=== PATIENT | male | born 1955 | race Caucasian/White ===

== ENCOUNTER 2016-09-13 10:32 | Emergency (ER) | payer MEDICAID ==
[~2016-09-13] VITALS: Ht 166.4 cm; Wt 103.4 kg
[2016-09-13 10:40] VITALS: BP 153/97
--- NOTE | 2016-09-13 11:40 | NUR ---
PT AMBULATED TO ER BED 05.
--- NOTE | 2016-09-13 11:44 | NUR ---
PATIENT PRESENTS TO ED WITH C/O EPIGASTRIC PAIN RADIATES TO UPPER RIGHT ABDOMEN X 2 DAYS.HX: DM, HTN, HYPERLIPIDEMIA;PT STATES HE FEELS NAUSEATED BUT DENIES VOMITTING;HAS DIARRHEA EVERY TIME HE TAKES CHOLESTEROL MEDICINE; SKIN IS PINK/WARM/DRY; AAOX4 WITH EVEN AND STEADY GAIT; LUNGS CLEAR BL; HR EVEN AND REGULAR; PT DENIES ANY FEVER, CP, SOB, OR COUGH AT THIS TIME; PATIENT STATES PAIN OF 10/10 EPIGASTRIC PAIN AT THIS TIME; VSS; PATIENT POSITIONED FOR COMFORT; HOB ELEVATED; BEDRAILS UP X2; BED DOWN. ER MD MADE AWARE OF PT STATUS.
--- NOTE | 2016-09-13 11:44 | NUR ---
ER MD BY BEDSIDE TO EXAMINE PT
[2016-09-13 12:02] LABS: HEMATOCRIT 50.5 % (36-52); HEMOGLOBIN 16.8 g/dL (12.0-18.0); MEAN CORPUSCULAR HEMOGLOBIN 31 pg (27-31); MEAN CORPUSCULAR HGB CONC 33 g/dL (33-37); MEAN CORPUSCULAR VOLUME 93 fL (80-94); PLATELET COUNT (AUTO) 155 K/uL (140-450); RED BLOOD CELL COUNT(AUTO) 5.45 MIL/uL (4.20-6.10); RED CELL DISTRIBUTION WIDTH 12.4 % (11.6-13.7); WHITE BLOOD COUNT (AUTO) 8.3 K/uL (4.8-10.8)
[2016-09-13 12:06] LABS: LYMPHOCYTES % (AUTO) 18.7 % (20.5-51.1); MONOCYTES % (AUTO) 3.7 % (1.7-9.3); NEUTROPHILS % (AUTO) 75.3 % (42.2-75.2)
[2016-09-13 12:06] LABS: APPEARANCE,URINE CLOUDY (CLEAR); BILIRUBIN,URINE 1+ (NEGATIVE); BLOOD, URINE TRACE-L (NEGATIVE); COLOR,URINE YELLOW (YELLOW); LEUKOCYTE ESTERASE ,URINE NEGATIVE (NEGATIVE); NITRITE, URINE NEGATIVE (NEGATIVE); PROTEIN,URINE 1+ (NEGATIVE); UGLUCOSE TRACE (NEGATIVE); UROBILINOGEN,URINE 0.2 EU/dL (0.2 - 1)
[2016-09-13 12:07] LABS: BASOPHILS % (AUTO) 0.4 % (0.0-2.0); EOSINOPHILS # (AUTO) 0.2 K/uL (0-0.4); EOSINOPHILS % (AUTO) 1.9 % (0.0-4.0); LYMPHOCYTES # (AUTO) 1.6 K/uL (2.0-11.5); MONOCYTES # (AUTO) 0.3 K/uL (0.8-1.0); NEUTROPHILS # (AUTO) 6.2 K/uL (1.8-7.7)
[2016-09-13 12:14] LABS: RBC,URINE 0-1 /HPF (0-5); WBC,URINE 0-3 /HPF (0-5)
[2016-09-13 12:15] LABS: BACTERIA,URINE OCCASSIONAL /HPF (None Seen); SQUAMOUS EPITHELIAL CELL,UR 0-2 /LPF (0-3 (FEW)); URINE AMORPHOUS URATE 3+ /HPF (None Seen)
--- NOTE | 2016-09-13 12:23 | NUR ---
ULTRASOUND AT BEDSIDE.
[2016-09-13 12:24] LABS: ALBUMIN 3.8 g/dL (3.4-5.0); ANION GAP 14.4 (8-16); CALCIUM 9.3 mg/dL (8.5-10.1); CARBON DIOXIDE 27.7 mmol/L (21-32); POTASSIUM 3.1 mmol/L (3.5-5.1); TOTAL BILIRUBIN 1.6 mg/dL (0.0-1.0); TOTAL PROTEIN, SERUM 8.1 g/dL (6.4-8.2)
[2016-09-13 12:31] LABS: ICTOTEST POSITIVE (NEGATIVE)
--- NOTE | 2016-09-13 13:24 | NUR ---
Patient appears to be resting comfortably in bed. Vital Signs within normal limits. Respirations even and unlabored.
[2016-09-13 13:48] VITALS: BP 141/94
--- NOTE | 2016-09-13 13:49 | NUR ---
Patient discharged with v/s stable. Written and verbal after care instructions given and explained. Patient alert, oriented and verbalized understanding of instructions. Ambulatory with steady gait. All questions addressed prior to discharge. ID band removed. Patient advised to follow up with PMD. Rx of TRAMADOL HYDROCHLORIDE AND OMEPRAZOLE given. Patient educated on indication of medication including possible reaction and side effects. Opportunity to ask questions provided and answered.
== END 2016-09-13 13:49 | disposition home or self-care (01) ==
LOC: MED 10:39
DX: K29.70 Gastritis, unspecified, without bleeding (principal); E11.9 Type 2 diabetes mellitus without complications; I10 Essential (primary) hypertension; L40.9 Psoriasis, unspecified
CPT/HCPCS: 36415; 76705; 80053; 81001; 82150; 82948; 83690; 85025; 99285

== ENCOUNTER 2017-01-21 10:22 | Emergency (ER) | payer MEDICAID ==
[~2017-01-21] VITALS: Ht 172.7 cm; Wt 104.5 kg
[2017-01-21 10:53] VITALS: BP 142/91
--- NOTE | 2017-01-21 10:58 | NUR ---
Patient to bed 08.
--- NOTE | 2017-01-21 11:00 | NUR ---
61 BIB FAMILY C/O COLD SYMPTOMS x 3 DAYS. PT STS PRODUCTIVE COUGH WITH "GREEN PHELEGM". PT HAS THROAT PAIN 3/10 ACHING NON-RADIATING. FAMILY DENIES GIVING ANY MEDS PRIOR TO ER VISIT. AAO APPROPRIATE TO AGE, BREATHING EVEN AND UNLABORED. ERMD NOTIFIED OF PATIENT STATUS.
--- NOTE | 2017-01-21 12:24 | NUR ---
Dr. Kemp evaluating patient at bedside.
[2017-01-21 13:24] VITALS: BP 185/85
--- NOTE | 2017-01-21 13:24 | NUR ---
Patient discharged with v/s stable. Written and verbal after care instructions given and explained. Patient alert, oriented and verbalized understanding of instructions. Carried with steady gait. All questions addressed prior to discharge. ID band removed. Patient advised to follow up with PMD. Rx of Motrin and Prednisone given. Patient educated on indication of medication including possible reaction and side effects. Opportunity to ask questions provided and answered.
== END 2017-01-21 13:19 | disposition home or self-care (01) ==
LOC: MED 10:22
DX: J06.9 Acute upper respiratory infection, unspecified (principal); E11.9 Type 2 diabetes mellitus without complications; I10 Essential (primary) hypertension
CPT/HCPCS: 99283

== ENCOUNTER 2018-05-02 08:50 | Emergency (ER) | payer MEDICAID ==
[~2018-05-02] VITALS: Ht 172.7 cm; Wt 107.3 kg
[2018-05-02 08:56] VITALS: BP 142/81
--- NOTE | 2018-05-02 09:03 | NUR ---
Note undone in EDM - 05/02/18 at 0929 by [email or web address] 62 Y M BIB C/O LEFT SIDE FACIAL NUMBNESS & LEFT EYE WATERY X YESTERDAY. LEFT EYE REDNESS. GCS 15. POSITIVE STRENGTH IN BOTH ARMS. CLEAR SPEECH. AA0X4. DENIES HEADACHE. NO PAIN. BED IS DOWN, LOCKED, BED RAIL X 1, ERMD NOTIFIED. BLOOD SUGAR 146 HX : DM, HTN, HLD
--- NOTE | 2018-05-02 09:10 | NUR ---
PT AMBULATED TO BED 7
--- NOTE | 2018-05-02 09:13 | NUR ---
62 Y M BIB C/O LEFT SIDE FACIAL NUMBNESS & LEFT EYE WATERY X YESTERDAY. LEFT EYE REDNESS. GCS 15. POSITIVE STRENGTH IN BOTH ARMS. CLEAR SPEECH. AA0X4. DENIES HEADACHE. NO PAIN. BED IS DOWN, LOCKED, BED RAIL X 1, ERMD NOTIFIED. BLOOD SUGAR 146 HX : DM, HTN, HLD
--- NOTE | 2018-05-02 09:25 | NUR ---
DR WALLACE AT BEDSIDE
[2018-05-02 09:38] VITALS: BP 142/81
--- NOTE | 2018-05-02 09:38 | NUR ---
Patient discharged with v/s stable. Written and verbal after care instructions given and explained. Patient alert, oriented and verbalized understanding of instructions. Ambulatory with steady gait. All questions addressed prior to discharge. ID band removed. Patient advised to follow up with PMD. Rx of prednisone/artificial drops given. Patient educated on indication of medication including possible reaction and side effects. Opportunity to ask questions provided and answered. instructed pt to not wait if similar symptoms occur in the future as cva symptoms may be similar. also to return if symptoms worsen.
== END 2018-05-02 09:38 | disposition home or self-care (01) ==
LOC: MED 08:50
DX: G51.0 Bell's palsy (principal); E11.9 Type 2 diabetes mellitus without complications; I10 Essential (primary) hypertension
CPT/HCPCS: 99283

== ENCOUNTER 2023-07-07 22:07 | Emergency (ER) | payer MEDICARE, MEDICAID ==
[~2023-07-07] VITALS: Ht 172.7 cm; Wt 101.2 kg
[2023-07-07 22:22] VITALS: BP 185/105; PULSE 88; RESP 16; TEMP 97.6; O2SAT 98
[2023-07-07 23:16] VITALS: TEMP 97.6
[2023-07-07 23:21] LABS: BASOPHILS % (AUTO) 0.6 % (0.0-2.0); EOSINOPHILS # (AUTO) 0.1 K/uL (0-0.4); HEMATOCRIT 48.8 % (36-52); LYMPHOCYTES # (AUTO) 1.4 K/uL (2.0-11.5); LYMPHOCYTES % (AUTO) 19.1 % (20.5-51.1); MEAN CORPUSCULAR HEMOGLOBIN 31 pg (27-31); MEAN CORPUSCULAR HGB CONC 35 g/dL (33-37); MEAN CORPUSCULAR VOLUME 89.9 fL (80-94); MONOCYTES # (AUTO) 0.6 K/uL (0.8-1.0); MONOCYTES % (AUTO) 7.7 % (1.7-9.3); NEUTROPHILS # (AUTO) 5.3 K/uL (1.8-7.7); NEUTROPHILS % (AUTO) 71.6 % (42.2-75.2); PLATELET COUNT (AUTO) 179 K/uL (140-450); RED BLOOD CELL COUNT(AUTO) 5.43 MIL/uL (4.20-6.10); RED CELL DISTRIBUTION WIDTH 13.1 % (11.6-13.7); WHITE BLOOD COUNT (AUTO) 7.4 K/uL (4.8-10.8)
[2023-07-07 23:37] VITALS: BP 151/93; PULSE 91; RESP 16; O2SAT 98
[2023-07-07 23:41] LABS: ANION GAP 11.7 (8-16); CALCIUM 9.7 mg/dL (8.5-10.1); CARBON DIOXIDE 28.2 mmol/L (21-32); CREATININE 1.3 mg/dL (0.6-1.3); POTASSIUM 3.9 mmol/L (3.5-5.1)
== END 2023-07-08 00:32 | disposition home or self-care (01) ==
LOC: MED 22:07
DX: I10 Essential (primary) hypertension (principal); E11.9 Type 2 diabetes mellitus without complications
CPT/HCPCS: 36415; 71045; 80048; 84484; 85025; 93005; 99285